=== PATIENT | female | born 1995 | race Caucasian/White ===

== ENCOUNTER 2017-04-30 11:43 | Emergency (ER) | payer BC, OTHER ==
[2017-04-30] MEDS ORDERED: fentaNYL 100 MCG/2 ML SDV IM ONE (11:48)
--- NOTE | 2017-04-30 11:56 | EDM.PDOC ---
ED HPI GENERAL MEDICAL PROBLEM - General Chief Complaint: Upper Extremity Injury/Pain Stated Complaint: hand injury Time Seen by Provider: 04/30/17 11:45 - History of Present Illness INITIAL COMMENTS - FREE TEXT/NARRATIVE: Patient got her finger caught on a auger while trying to clean it. Brought to ER by boyfriend for her hand to be evaluated. Onset: Sudden Quality: Reports: Ache Improves with: Reports: None Worsens with: Reports: None Right Hand Pain Score (Numeric/FACES): 5 - Related Data Allergies Allergy/AdvReac Type Severity Reaction Status Date / Time No Known Allergies Allergy Verified 04/30/17 11:47 Home Meds: Home Meds Acetaminophen with Codeine [Tylenol with Codeine #3 Tablet] 1 each PO Q6HR #20 tablet 04/30/17 [Rx] Review of Systems - Review of Systems Review Of Systems: See Below Constitutional: Reports: No Symptoms Eyes: Reports: No Symptoms Ears: Reports: No Symptoms Nose: Reports: No Symptoms Mouth/Throat: Reports: No Symptoms Respiratory: Reports: No Symptoms Cardiovascular: Reports: No Symptoms GI/Abdominal: Reports: No Symptoms Genitourinary: Reports: No Symptoms Musculoskeletal: Reports: Hand Pain Skin: Reports: No Symptoms Neurological: Reports: No Symptoms Psychiatric: Reports: No Symptoms ED EXAM, GENERAL - Physical Exam Exam: See Below Exam Limited By: No Limitations General Appearance: Alert, WD/WN, No Apparent Distress Eye Exam: Bilateral Eye: EOMI, PERRL Ears: Normal External Exam, Normal Canal, Hearing Grossly Normal, Normal TMs Ear Exam: Bilateral Ear: Auricle Normal, Canal Normal, TM normal Nose: Normal Inspection, Normal Mucosa, No Blood Throat/Mouth: Normal Inspection, Normal Lips, Normal Teeth, Normal Gums, Normal Oropharynx, Normal Voice, No Airway Compromise Head: Atraumatic, Normocephalic Neck: Normal Inspection, Supple, Non-Tender, Full Range of Motion Respiratory/Chest: No Respiratory Distress, Lungs Clear, Normal Breath Sounds, No Accessory Muscle Use, Chest Non-Tender Cardiovascular: Normal Peripheral Pulses, Regular Rate, Rhythm, No Edema, No Gallop, No JVD, No Murmur, No Rub GI/Abdominal: Normal Bowel Sounds, Soft, Non-Tender, No Organomegaly, No Distention, No Abnormal Bruit, No Mass Back Exam: Normal Inspection, Full Range of Motion, Other (Left hand crush injury patient got caught on a Auger at work when she tried to clean the Auger while he was running) Extremities: Normal Inspection, Normal Range of Motion, Non-Tender, Normal Capillary Refill, No Pedal Edema Neurological: Alert, Oriented, CN II-XII Intact, Normal Cognition, Normal Gait, Normal Reflexes, No Motor/Sensory Deficits Psychiatric: Normal Affect, Normal Mood Skin Exam: Warm, Dry, Other (Multiple laceration and abrasions on right hand) Lymphatic: No Adenopathy ED TRAUMA EXTREMITY PROCEDURES - Laceration/Wound Repair Right Finger Lac/Wound Length In cm: 1 Appearance: Superficial Anesthetic Type: Local Local Anesthesia - Lidocaine (Xylocaine): 2% Plain Skin Prep: Chlorhexidine (Hibiciens) Closed With: Sutures Suture Size: other (5-0) Suture Type: Nylon Progress/Comments: right middle finger Patient was seen wound was cleaned and prepped in the standard form using hibiclens after appropriate levels of sterilization we injected him 2% lidocaine and sutured it with 5-0 nylon 2 tolerated well the procedure sent home in satisfactory condition Course - Vital Signs Last Recorded V/S: Last Vital Signs Temp 97.1 F 04/30/17 12:20 Pulse 56 L 04/30/17 12:20 Resp 18 04/30/17 12:20 BP 100/62 04/30/17 12:20 Pulse Ox 100 04/30/17 12:20 - Orders/Labs/Meds Orders: Active Orders 24 hr Category Date Time Status Vaccines to be Administered [RC] PER UNIT ROUTINE Care 04/30/17 12:07 Active Hand Comp Min 3V Rt [CR] Stat Exams 04/30/17 11:46 Taken Meds: Medications Discontinued Medications Generic Name Dose Route Start Last Admin Trade Name Freq PRN Reason Stop Dose Admin Diphtheria/Tetanus/Acell Pertussis 0.5 ml 04/30/17 12:07 04/30/17 12:14 Adacel IM 04/30/17 12:08 0.5 ml .ONCE ONE Administration Fentanyl 25 mcg 04/30/17 11:48 04/30/17 12:06 Sublimaze IM 04/30/17 11:49 25 mcg ONETIME ONE Administration Lidocaine 5 ml 04/30/17 12:41 04/30/17 12:59 Xylocaine-Mpf 2% INJECT 04/30/17 12:42 5 ml ONETIME ONE Administration Neomycin/Polymyxin/Bacitracin 1 each 04/30/17 12:25 04/30/17 12:27 Triple Antibiotic Oint TOP 04/30/17 12:26 1 each ONETIME ONE Administration Departure - Departure Time of Disposition: 14:00 Disposition: Home, Self-Care 01 Clinical Impression: Broken skin - Discharge Information Prescriptions: Acetaminophen with Codeine [Tylenol with Codeine #3 Tablet] 1 each PO Q6HR #20 tablet Instructions: Tissue Adhesive Wound Care, Laceration Care, Adult, Sutured Wound Care, Fentanyl injection Referrals: Dewayne Fernandez MD [Primary Care Provider] - Forms: ED Department Discharge Additional Instructions: Patient is to follow-up with myself in a week she is not to touch the bandage we will do that in the clinic and will give her Tylenol 3 one tablet every 6 hours for pain #20 Care Plan Goals: Procedure note patient is a 21-year-old who has a laceration at the PIP joint area of the middle finger right hand this is secondary to an auger injury at this time x-rays were obtained no fracture seen it was decided to close the laceration the area was prepped and draped with Betadine once appropriate levels of anesthesia 2% lidocaine was injected using 5-0 nylon 3 interrupted sutures were used the wound was prior to that explored no foreign bodies seen and the edges were clean and straight after the wound was closed Neosporin was applied and a Band-Aid patient tolerated well the procedure a Maykel dressing was applied patient is to follow-up with me in a week - Problem List & Annotations (1) Broken skin SNOMED Code(s): 455306901 Code(s): R23.8 - OTHER SKIN CHANGES Status: Acute Current Visit: Yes - Problem List Review Problem List Initiated/Reviewed/Updated: Yes - My Orders Last 24 Hours: My Active Orders 04/30/17 11:46 Hand Comp Min 3V Rt [CR] Stat 04/30/17 12:07 Vaccines to be Administered [RC] PER UNIT ROUTINE - Assessment/Plan Last 24 Hours: My Active Orders 04/30/17 11:46 Hand Comp Min 3V Rt [CR] Stat 04/30/17 12:07 Vaccines to be Administered [RC] PER UNIT ROUTINE Plan: Patient sent home after skin closure. Will follow up in clinic.
[2017-04-30] MEDS ORDERED: Diphtheria,Pertussis(Acell),Tetanus Vaccine 0.5 ML SDV IM ONE (12:07)
[2017-04-30 12:21] VITALS: BP 100/62
[2017-04-30] MEDS ORDERED: Bacitracin/Neomycin/Polymyxin B Oint 0.9 GM U/D Packet TOP ONE (12:25)
[2017-04-30] MEDS ORDERED: Lidocaine 2% 5 ML SDV INJECT ONE (12:41)
== END 2017-04-30 13:40 | disposition home or self-care (01) ==
LOC: LL.ED 11:43 → MERGE 11:43 → LL.ED 13:40
DX: S61.212A Laceration without foreign body of right middle finger without damage to nail, initial encounter (principal); S67.22XA Crushing injury of left hand, initial encounter; Z23 Encounter for immunization; W23.0XXA Caught, crushed, jammed, or pinched between moving objects, initial encounter; Y92.69 Other specified industrial and construction area as the place of occurrence of the external cause; Y99.0 Civilian activity done for income or pay
CPT/HCPCS: 12001; 73130; 90471; 90715; 96372; 99283; J3010